=== PATIENT | male | born 1955 | race Caucasian/White ===

== ENCOUNTER 2021-03-23 19:03 | Emergency (ER) | payer MEDICARE, OTHER ==
[~2021-03-23] VITALS: Ht 177.8 cm; Wt 74.8 kg
[~2021-03-23 19:03] MED LIST: ACET-868 PO; ALLA266C2 TP; CLOT15CR35 TP; LEVO50TA8 PO; MAG30ORA PO; MAGN400O6 PO; NEOM1PAC2 TP; PROP20TA7 PO
--- NOTE | 2021-03-23 19:14 | NUR ---
PT BIBRA C/O FALL OUT OF BED. PT AAOX4 BREATHING EVENLY AND UNLABORED. pER PT, HE TRIED TO STAND UP OUT OF BED AND FELL. UPON ASSESSMENT, PT HAS LAC ON RT EYEBROW. PT ATTACHED TO MONITOR AND POX. PT GIVEN BLANKET AND CALL LIGHT WITHIN REACH
[2021-03-23] MEDS ORDERED: TDAP [DIPH/PERTUSSIS/TET] 0.5 ML VIAL IM ONE (19:26)
[2021-03-23] MEDS: TDAP [DIPH/PERTUSSIS/TET] 0.5 ML VIAL IM ONE (19:30)
[2021-03-23] MEDS: BACI/NEOM/POLY B OINT PKT 1 UDPKT PACKET TP ONE (19:30)
--- NOTE | 2021-03-23 19:31 | NUR ---
TAKEN TO RADIOLOGY
--- NOTE | 2021-03-23 19:40 | NUR ---
RETURN FROM RADIOLOGY
[2021-03-23] MEDS ORDERED: LIDOCAINE HCL/PF 1% 30 ML SDV ONE (19:47)
[2021-03-23] MEDS: LIDOCAINE HCL/PF 1% 30 ML VIAL TP ONE (19:49)
--- NOTE | 2021-03-23 21:02 | NUR ---
[facility] ETA [id number]
--- NOTE | 2021-03-23 22:15 | NUR ---
gave report to jose de la paz for abner
--- NOTE | 2021-03-23 22:16 | NUR ---
gave report to [facility]
[2021-03-24 00:53] VITALS: BP 133/62
== END 2021-03-24 00:54 | disposition home or self-care (01) ==
LOC: ER 19:11
DX: S01.111A Laceration without foreign body of right eyelid and periocular area, initial encounter (principal); I10 Essential (primary) hypertension; E78.5 Hyperlipidemia, unspecified; I25.2 Old myocardial infarction; F17.200 Nicotine dependence, unspecified, uncomplicated; Z98.890 Other specified postprocedural states; Z91.013 Allergy to seafood; Z91.048 Other nonmedicinal substance allergy status; Z79.899 Other long term (current) drug therapy; W18.39XA Other fall on same level, initial encounter; Y93.89 Activity, other specified; Y92.89 Other specified places as the place of occurrence of the external cause; Y99.8 Other external cause status
CPT/HCPCS: 12011; 70450; 90471; 90715; 99284; A6403; J3490 ×2

== ENCOUNTER → 2021-06-07 | Emergency (ER) | payer MEDICARE ==
[~2021-06-07] VITALS: Ht 177.8 cm; Wt 72.1 kg
[~2021-06-07] MED LIST changes: +ASCO-352 PO; +BISA5TAB10 PO; +CHOL100062 PO; +DOCU-141 PO; +HYDR-4303 PO; +MULT-447 PO; +OLAN5TAB3 PO; +TRAZ-182 PO
--- NOTE | 2021-06-07 15:40 | NUR ---
patient a/ox3, was complaining of left hip pain 02/09 per patient request. vss, seem ER MD will follow up.
--- NOTE | 2021-06-07 15:49 | NUR ---
CALLED TRANSP[facility] WILL PICKUP PT IN 60 MINS. [place] [address] [place] [id number]
--- NOTE | 2021-06-07 16:09 | NUR ---
wgewzgx will go back to the [facility], patient will follow up pcp.provided food, juice, and comforth care. called ambulance to [facility] patient phone # [phone]. Addendum: 06/07/21 at 1631 by JAMARCUS kailey notes wrong entery. patient going [facility] [address], ambulance pick patient at this time. explained patient follow pcp. patient verbalized understanding. sign paperwork.
[2021-06-07 16:35] VITALS: BP 130/70
== END | disposition home or self-care (01) ==
LOC: ER 13:45
DX: M25.552 Pain in left hip (principal); I10 Essential (primary) hypertension; E78.5 Hyperlipidemia, unspecified; I25.2 Old myocardial infarction; F17.200 Nicotine dependence, unspecified, uncomplicated; Z85.828 Personal history of other malignant neoplasm of skin; Z98.890 Other specified postprocedural states; Z91.013 Allergy to seafood; Z88.8 Allergy status to other drugs, medicaments and biological substances; Z79.899 Other long term (current) drug therapy
CPT/HCPCS: 73502